=== PATIENT | female | born 1995 | race African-American/Black ===

== ENCOUNTER 2017-05-18 16:16 | Emergency (ER) | payer SELFPAY ==
[~2017-05-18] VITALS: Ht 170.2 cm; Wt 75.0 kg
[2017-05-18 16:18] VITALS: BP 113/67; PULSE 83; RESP 18; TEMP 98; O2SAT 99
[2017-05-18] MEDS ORDERED: GARC500T PO (17:53)
--- NOTE | 2017-05-18 17:54 | PD ---
HPI Chief Complaint: GI Complaint Time Seen by Provider: 17:54 Travel History International Travel<30 days: No Contact w/Intl Traveler<30days: No Traveled to known affect area: No History of Present Illness HPI 22-year-old female with remote history of Hodgkin's lymphoma presents to nursing department for evaluation of bright red blood with 2 of her bowel movements today. Patient states her stool was brown. She denies any pain. Denies any fever or chills. No recent trauma. Patient has no history of colitis or diverticulitis. She has no other symptoms reported. PFSH Past Medical History Cancer: Yes (hodgkins lymphoma) ?: Not LMP: 04/26/17 Past Surgical History Other Surgery: Yes (port insertion and removal) Social History Alcohol Use: Yes (once every 2 weeks) Tobacco Use: No Substance Use: No Allergies-Medications (Allergen,Severity, Reaction): Coded Allergies: No Known Drug Allergies (Verified Allergy, Unknown, 05/18/17) Reported Meds & Prescriptions Reported Meds & Active Scripts Active Anucort-Hc Supp (Hydrocortisone Acetate Supp) 25 Mg Supp 25 Mg RECTAL BID Reported Garcinia Cambogia 500-200 mg-Mcg (Garcinia Cambogia-Chromium) 1 Tab Tab 1 Tab PO DAILY Review of Systems Except as stated in HPI: all other systems reviewed are Neg Physical Exam Narrative GENERAL: Well-nourished female patient, in no acute distress SKIN: Focused skin assessment warm/dry. HEAD: Atraumatic. Normocephalic. EYES: Pupils equal and round. No scleral icterus. No injection or drainage. ENT: No nasal bleeding or discharge. Mucous membranes pink and moist. NECK: Trachea midline. No JVD. CARDIOVASCULAR: Regular rate and rhythm. No murmur appreciated. RESPIRATORY: No accessory muscle use. Clear to auscultation. Breath sounds equal bilaterally. GASTROINTESTINAL: Abdomen soft, undistended. Slight tenderness left lower quadrant. No rebound tenderness. No guarding. Hepatic and splenic margins not palpable. RECTAL EXAM: No tenderness. Intraoral palpable hemorrhoid. Stool is brown. MUSCULOSKELETAL: No obvious deformities. No clubbing. No cyanosis. No edema. NEUROLOGICAL: Awake and alert. No obvious cranial nerve deficits. Motor grossly within normal limits. Normal speech. PSYCHIATRIC: Appropriate mood and affect; insight and judgment normal. Data Data Last Documented VS Vital Signs Date Time Temp Pulse Resp B/P Pulse Ox O2 Delivery O2 Flow Rate FiO2 05/18/17 16:18 98.0 83 18 113/67 99 Room Air MDM Medical Decision Making Medical Screen Exam Complete: Yes Emergency Medical Condition: Yes Medical Record Reviewed: Yes Differential Diagnosis Hemorrhoid bleeding versus colitis versus diverticulitis Narrative Course 22-year-old female presents to department for evaluation. Patient appears without distress. She has a very slight left lower quadrant tenderness to palpation. Zach prompt is positive but stool is brown. I discussed the patient my attending physician. Patient will be discharged home to follow-up with her primary care provider. She agrees to return immediately with any acute worsening symptoms. HemaPrompt Point of Care Internal Pos. & Neg. Controls: Passed Fecal Specimen Occult Blood: Positive Diagnosis Primary Impression: Blood in stool Additional Impression: Internal hemorrhoid Referrals: [facility] Primary Care Physician Patient Instructions: General Instructions, Hemorrhoids (ED) Additional Instructions: Avoid straining with bowel movement Maintain adequate oral hydration [id number] stool softener may help reduce hemorrhoid irritation. Follow up with your primary care provider Return immediately with any acute worsening of symptoms Med/Other Pt SpecificInfo: Prescription(s) given Scripts Hydrocortisone Acetate Supp (Anucort-Hc Supp)25 Mg Supp25 Mg RECTAL BID #14 SUPP Ref 0 Prov:Katy Mcdowell 05/18/17 Disposition: 01 DISCHARGE HOME Condition: Stable Katy Mcdowell May 18, 2017 17:54
[2017-05-18] MEDS ORDERED: ANUC25SU RECTAL (18:13)
== END 2017-05-18 20:57 | disposition home or self-care (01) ==
LOC: NEPD 16:16
DX: K64.8 Other hemorrhoids (principal); Z85.71 Personal history of Hodgkin lymphoma
CPT/HCPCS: 99283

== ENCOUNTER 2018-02-06 21:08 | Emergency (ER) | payer OTHER ==
[~2018-02-06] VITALS: Ht 170.2 cm; Wt 80.0 kg
[~2018-02-06 21:08] MED LIST: ANUC25SU RECTAL; GARC500T PO
[2018-02-06 21:14] VITALS: BP 125/60; PULSE 96; RESP 18; TEMP 98.5; O2SAT 100
[2018-02-06] MEDS ORDERED: TRIAM.1%T TOPICAL (23:34)
--- NOTE | 2018-02-06 23:57 | PD ---
HPI Chief Complaint: Abdominal Pain Time Seen by Provider: 23:46 Travel History International Travel<30 days: No Contact w/Intl Traveler<30days: No Traveled to known affect area: No History of Present Illness HPI 23yo F with PMH of nonhodgkin's lymphoma in remission for 4 years presents to the ED with c/o nonbloody diarrhea today. Also with some left sided abdominal pain that is worst with movement. Pain is sharp, intermittent, mild in severity and nonradiating. Denies any fever, chest pain, sob, n/v, dysuria, hematuria, vaginal discharge. Pt is on her menstrual period. PFSH Past Medical History Cancer: Yes (hodgkins lymphoma) Diabetes: No Patient Takes Glucophage: No Diminished Hearing: No Integumentary: Yes Immunizations Current: Yes Tetanus Vaccination: < 5 Years Influenza Vaccination: No ?: Not LMP: 02/06/18 Past Surgical History Other Surgery: Yes (port insertion and removal) Social History Alcohol Use: Yes (once every 2 weeks) Tobacco Use: No Substance Use: No Allergies-Medications (Allergen,Severity, Reaction): Coded Allergies: No Known Drug Allergies (Verified Allergy, Unknown, 02/06/18) Reported Meds & Prescriptions Reported Meds & Active Scripts Active Reported Triamcinolone Topical (Triamcinolone Acetonide) 0.1 % Oint 1 Applic TOPICAL QID Review of Systems Except as stated in HPI: all other systems reviewed are Neg Physical Exam Narrative GENERAL: 23yo F not in distress. SKIN: Focused skin assessment warm/dry. HEAD: Atraumatic. Normocephalic. EYES: Pupils equal and round. No scleral icterus. No injection or drainage. ENT: No nasal bleeding or discharge. Mucous membranes pink and moist. NECK: Trachea midline. No JVD. CARDIOVASCULAR: Regular rate and rhythm. No murmur appreciated. RESPIRATORY: No accessory muscle use. Clear to auscultation. Breath sounds equal bilaterally. GASTROINTESTINAL: Abdomen soft, non-tender, nondistended. No rebound tenderness or guarding. BACK: No CVA tenderness bilaterally. MUSCULOSKELETAL: No obvious deformities. No clubbing. No cyanosis. No edema. NEUROLOGICAL: Awake and alert. No obvious cranial nerve deficits. Motor grossly within normal limits. Normal speech. PSYCHIATRIC: Appropriate mood and affect; insight and judgment normal. Data Data Last Documented VS Vital Signs Date Time Temp Pulse Resp B/P (MAP) Pulse Ox O2 Delivery O2 Flow Rate FiO2 02/06/18 21:14 98.5 96 18 125/60 (81) 100 Orders Orders Ed Urine Pregnancytest Poc (02/06/18 23:53) Urinalysis - C+S If Indicated (02/06/18 23:53) Complete Blood Count With Diff (02/06/18 23:53) Comprehensive Metabolic Panel (02/06/18 23:53) Lipase (02/06/18 23:53) Ketorolac Inj (Toradol Inj) (02/07/18 00:00) Sodium Chlor 0.9% 1000 Ml Inj (Ns 1000 M (02/07/18 00:00) Urine Culture (02/07/18 00:05) Labs Laboratory Tests Test 02/07/18 00:00 02/07/18 00:05 White Blood Count 5.1 TH/MM3 Red Blood Count 4.22 MIL/MM3 Hemoglobin 12.9 GM/DL Hematocrit 37.8 % Mean Corpuscular Volume 89.5 FL Mean Corpuscular Hemoglobin 30.5 PG Mean Corpuscular Hemoglobin Concent 34.1 % Red Cell Distribution Width 13.6 % Platelet Count 288 TH/MM3 Mean Platelet Volume 8.1 FL Neutrophils (%) (Auto) 45.9 % Lymphocytes (%) (Auto) 44.5 % Monocytes (%) (Auto) 8.3 % Eosinophils (%) (Auto) 1.0 % Basophils (%) (Auto) 0.3 % Neutrophils # (Auto) 2.4 TH/MM3 Lymphocytes # (Auto) 2.3 TH/MM3 Monocytes # (Auto) 0.4 TH/MM3 Eosinophils # (Auto) 0.1 TH/MM3 Basophils # (Auto) 0.0 TH/MM3 CBC Comment DIFF FINAL Differential Comment Blood Urea Nitrogen 18 MG/DL Creatinine 1.16 MG/DL Random Glucose 85 MG/DL Total Protein 8.5 GM/DL Albumin 3.9 GM/DL Calcium Level 8.7 MG/DL Alkaline Phosphatase 89 U/L Aspartate Amino Transf (AST/SGOT) 16 U/L Alanine Aminotransferase (ALT/SGPT) 14 U/L Total Bilirubin 0.2 MG/DL Sodium Level 141 MEQ/L Potassium Level 3.9 MEQ/L Chloride Level 109 MEQ/L Carbon Dioxide Level 25.5 MEQ/L Anion Gap 7 MEQ/L Estimat Glomerular Filtration Rate 69 ML/MIN Lipase 104 U/L Urine Color YELLOW Urine Turbidity HAZY Urine pH 5.5 Urine Specific [place] 1.031 Urine Protein TRACE mg/dL Urine Glucose (UA) NEG mg/dL Urine Ketones TRACE mg/dL Urine Occult Blood TRACE Urine Nitrite NEG Urine Bilirubin NEG Urine Urobilinogen 2.0 MG/DL Urine Leukocyte Esterase LARGE Urine RBC 1 /hpf Urine WBC 13 /hpf Urine Squamous Epithelial Cells 7 /hpf Urine Transitional Epithelial Cells <1 /hpf Urine Bacteria RARE /hpf Urine Mucus FEW /lpf Microscopic Urinalysis Comment CULTURE INDICATED MDM Medical Decision Making Medical Screen Exam Complete: Yes Emergency Medical Condition: Yes Differential Diagnosis Viral gastroenteritis vs. UTI vs. nephrolithiasis vs. musculoskeletal pain vs. dehydration vs. electrolyte abnormality Narrative Course 23yo well appearing female here with nonbloody diarrhea today. Had some left sided pain with movement but no tenderness on abdominal exam. Labs reviewed, no leukocytosis. H/H normal. Lipase normal. UA showed large leukocyte. WBC 13. Will cover with antibiotics. Pt tolerating PO. Given toradol and said it helped with the side pain. Urine negative. Return precautions given. Diagnosis Primary Impression: UTI (urinary tract infection) Qualified Codes: N39.0 - Urinary tract infection, site not specified; R31.9 - Hematuria, unspecified Patient Instructions: General Instructions Departure Forms: Tests/Procedures Additional Instructions: Please follow up with your primary care physician in 2-3 days. Return to the ED if symptoms worsen. Med/Other Pt SpecificInfo: Prescription(s) given Scripts Sulfamethoxazole-Trimethoprim (Bactrim DS) 800-160 Mg Tab 1 TAB PO BID for Infection, #14 TAB 0 Refills Prov: EllisKati 02/07/18 Disposition: 01 DISCHARGE HOME Condition: Stable Kati Ellis DO February 06, 2018 23:57
[2018-02-07] MEDS ORDERED: KETOROLAC TROMETHAMINE 30 MG/ML (IVP) VIAL IV PUSH ONE
[2018-02-07] MEDS ORDERED: SODIUM CHLOR 0.9% 1000 ML INJ 1,000 ML IV ONE
[2018-02-07 00:23] LABS: BACTERIA, URINE RARE /hpf; BILIRUBIN, URINE NEG (NEG); BLOOD, URINE TRACE (NEG); GLUCOSE,URINE NEG (NEG); KETONE, URINE TRACE mg/dL (NEG); MUCUS URINE FEW /lpf (OCC); NITRITE,URINE NEG (NEG); PH, URINE 5.5 (5.0-8.5); SQUAMOUS EPITHELIAL CELL URINE 7 /hpf (0-5); TRANSITIONAL EPI CELLS, URINE <1 /hpf; URINE COLOR YELLOW (YELLW/STRAW); URINE LEUKOCYTE ESTERASE LARGE (NEG)
[2018-02-07 00:31] LABS: AUTOMATED NEUTROPHIL # 2.4 TH/MM3 (1.8-7.7); BASOPHIL % 0.3 % (0.0-2.0); EOSINOPHIL # 0.1 TH/MM3 (0-0.4); HEMATOCRIT 37.8 % (35.0-46.0); HEMOGLOBIN 12.9 GM/DL (11.6-15.3); LYMPH % 44.5 % (9.0-44.0); LYMPHOCYTE # 2.3 TH/MM3 (1.0-4.8); MEAN CELL VOLUME 89.5 FL (80.0-100.0); MEAN CORPUSCULAR HEMOGLOBIN 30.5 PG (27.0-34.0); MEAN CORPUSCULAR HGB CONC 34.1 % (32.0-36.0); MEAN PLATELET VOLUME 8.1 FL (7.0-11.0); MONO % 8.3 % (0.0-8.0); MONOCYTE # 0.4 TH/MM3 (0-0.9); NEUT % 45.9 % (16.0-70.0); PLATELET COUNT 288 TH/MM3 (150-450); RED BLOOD COUNT 4.22 MIL/MM3 (4.00-5.30); RED CELL DISTRIBUTION WIDTH 13.6 % (11.6-17.2); WHITE BLOOD COUNT 5.1 TH/MM3 (4.0-11.0)
[2018-02-07 00:37] LABS: ALBUMIN 3.9 GM/DL (3.4-5.0); ALT (GPT) 14 U/L (10-53); AST (GOT) 16 U/L (15-37); BICARBONATE 25.5 MEQ/L (21.0-32.0); BLOOD UREA NITROGEN 18 MG/DL (7-18); CALCIUM 8.7 MG/DL (8.5-10.1); CHLORIDE 109 MEQ/L (98-107); CREATININE 1.16 MG/DL (0.50-1.00); GLOMERULAR FILTRATION RATE 69 ML/MIN (>89); GLUCOSE,RANDOM 85 MG/DL (74-106); SODIUM (NA) 141 MEQ/L (136-145)
[2018-02-07 00:40] LABS: ALKALINE PHOSPHATASE 89 U/L (45-117); TOTAL BILIRUBIN ADULT 0.2 MG/DL (0.2-1.0); TOTAL PROTEIN 8.5 GM/DL (6.4-8.2)
[2018-02-07] MEDS ORDERED: BACT800T5 PO (01:13)
[2018-02-07] MEDS ORDERED: SULFAMETHOXAZOLE-TRIMETHOPRIM DS 800-160 MG TAB PO ONE (01:15)
== END 2018-02-07 02:01 | disposition home or self-care (01) ==
LOC: NEPD 21:08
DX: N39.0 Urinary tract infection, site not specified (principal); R10.9 Unspecified abdominal pain; B96.89 Other specified bacterial agents as the cause of diseases classified elsewhere; Z85.72 Personal history of non-Hodgkin lymphomas
CPT/HCPCS: 80053; 81001; 83690; 84703; 85025; 87086; 96361; 96374; 99284; J1885; J7030